=== PATIENT | male | born 1960 | race Caucasian/White ===

== ENCOUNTER 2023-09-05 07:25 | Inpatient (IN) | payer MEDICARE, SELFPAY ==
[2023-09-05] VITALS (42 sets, daily range): BP systolic 117–157; BP diastolic 71–93; PULSE 73–106; RESP 0–29; TEMP 36.2–36.7; O2SAT 91–97; BMI 25.7
--- NOTE | ~2023-09-05 | CT_ITS ---
CTA brain carotid Ordering provider: Ron Singh MD History: . left leg weakness . Comparison: None. Technique: CT angiogram head and neck was performed following timed intravenous injection of contrast . Thin slice axial images and reformatted coronal images were obtained. Three dimensional reformatted images of the brain were also obtained using a SEC Watch workstation. Radiation reduction technique ut ilized. DLP is 1702.81 mGy-cm. 100 mL Omnipaque 350 was given IV. FINDINGS: HEAD: --ANTERIOR AND MIDDLE CEREBRAL ARTERIES AND BRANCHES: Normal caliber and contour. --INTERNAL CAROTID ARTERIES: Mild atheromatous disease but no significant stenosis. No occlusion. --BASILAR ARTERY AND BRANCHES: Normal caliber and contour. No atheromatous disease. --POSTERIOR CEREBRAL ARTERIES: Normal caliber and contour --POSTERIOR COMMUNICATING ARTERIES: The right isn't demonstrated. The left is not visualized which is probably related to congenital absence or small size. --ANEURYSM: None visualized. --BRAIN: No acute intracranial process .--BONES AND SUPERFICIAL SOFT TISSUES: Normal.. --PARANASAL SINUSES AND MASTOIDS: Right maxillary sinus disease otherwise, Normal. NECK: --RIGHT CERVICAL CAROTID SYSTEM: Mild atheromatous disease of the carotid bulb and proximal internal carotid artery without significant stenosis. Percent stenosis per NASCET criteria is 30 %. No caroti d dissection. Otherwise, no significant atheromatous disease or stenosis of the cervical carotid syst em. --LEFT CERVICAL CAROTID SYSTEM: Mild atheromatous disease of the carotid bulb and proximal internal c arotid artery without significant stenosis. Percent stenosis per NASCET criteria is 30 %. No carotid dissection. Otherwise, no significant atheromatous disease or stenosis of the cervical carotid system. --VERTEBRAL ARTERIES: Normal caliber and contour. Narrowing of the intracranial left vertebral artery . Persistent is noted. --VISUALIZED AORTIC ARCH AND BRANCHING VESSELS: Mild atheromatous disease but no significant stenosis . --SOFT TISSUES: Normal. --CERVICAL SPINE: Age appropriate degenerative changes. IMPRESSION: 1. CTA head and neck. Percent stenosis per NASCET criteria is 30 % bilaterally. Reviewed, dictated and finalized at location A. IMPRESSION: 1. CTA head and neck. Percent stenosis per NASCET criteria is 30 % bilaterall y.
--- NOTE | ~2023-09-05 | CT_ITS ---
CT thoracic lumbar wo con Ordering provider: Ron Singh MD History: . back pain . Comparison: None. Technique: CT thoracic spine without contrast. Automated exposure control and iterative reconstructi on technique were employed. The dose-length product was 1007.03 mGy-cm. FINDINGS: VERTEBRAE: Compression fracture of T2 most likely acute slightly retropulsed fragment seen. Osteolyti c lesion is seen in the T4 on the left side osteolytic lesion is also seen in the right side of T10 O therwise, Normal height and alignment. No subluxation or other visible acute fracture in the thoracic and lumbar area. DISC SPACES: Well maintained. Disc bulge at the level of L4-L5 and L5-S1. PARASPINOUS SOFT TISSUES: Soft tissue density is seen to the left of T4. The abdominal aorta and the distal aorta measures 2.7 cm. Contrast is seen in the urinary bladder. IMPRESSION: Compression fracture of T2 with loss of volume of about 50%. Retropulsed fragment is seen. This is ma y be metastatic. Destructive lesion in the left side of T4 with soft tissue density seen to the left of this area most likely due to metastasis effusion. Further evaluation advised. Osteolytic lesion also seen in the right of T10. Mild disc bulges at the levels of L4-L5 and L5-S1. Reviewed, dictated and finalized at location A. IMPRESSION: Compression fracture of T2 with loss of volume of about 50%. Retropulsed fragme nt is seen. This is may be metastatic. Destructive lesion in the left side of T4 with soft tissue density seen to the left of this area most likely due to metastasis effusion. Further evaluation ad vised. Osteolytic lesion also seen in the right of T10. Mild disc bulges at the levels of L4-L5 and L5-S1.
--- NOTE | ~2023-09-05 | MR_ITS ---
MR brain/brain stem wo/w con Ordering provider: Ron Singh MD History: 63 years Male with . CVA . Comparison: CT head performed yesterday. Technique: MRI brain was performed with and without contrast. 17 mL of MultiHance was injected. FINDINGS: BONES: Normal. CRANIOCERVICAL JUNCTION: normal. PITUITARY: Normal. MAJOR INTRACRANIAL VESSELS: Normal flow void. OPTIC NERVES AND CRANIAL NERVES VII AND VIII COMPLEXES: Grossly normal. BRAIN PARENCHYMA AND CSF SPACES: Mild nonspecific T2 white matter hyperintensities are seen in a renan ateral periventricular and deep white matter distribution which are likely related to chronic ischemi c small vessel disease. The brainstem and cerebellum are normal. No acute or chronic intracranial hem orrhage. No extra axial fluid collections. Diffusion weighted and ADC mapping images reveal no recent ischemia. No midline shift or mass effect. No abnormal contrast enhancement. PARANASAL SINUSES: Right maxillary and bilateral ethmoid sinus. MASTOIDS: Normal SUPERFICIAL/SURROUNDING SOFT TISSUES: Normal. IMPRESSION: 1. No definite abnormality seen. 2. No abnormal enhancement. Reviewed, dictated and finalized at location A.
--- NOTE | ~2023-09-05 | MR_ITS ---
Procedure: MR thoracic spine wo/w Ordering provider: Ron Singh History: . back pain, left left weakness . Comparison: None. Technique: MRI thoracic spine with and without contrast. FINDINGS: SPINAL CORD: Cord contusion seen at the level of T2. Bright signal on T2-weighted images is seen in t he cord in the area of the disc T1-T2 which raises the possibility of cord transection. T1 weighted i mages bright signal is also seen in the area which may indicate a hematoma. Enhancement around the co rd is also noted which may indicate infiltrative process. No definite cord enhancement seen. VERTEBRAL BODIES: Compression fracture of T2 is noted with about 80% degree. T2 bright/T1 low signal is seen in T2, T4 and T10. Enhancement in multiple vertebrae is seen involving T2, T4 and T10. DISK SPACES: Normal. PARASPINOUS SOFT TISSUES: Prevertebral soft tissue swelling is seen at the level of inferior T1, T2 a nd superior T3. enhancement of the area is noted. Enhancing soft tissue swelling also seen around T4 and of minimal amount around T10 on the right side IMPRESSION: Compression fracture of T2 with loss of volume of about 80%. Abnormal signal with enhancement is seen in T2, T4 and T10. Cord contusion in the area is highly suggestive. Possibility of cord transection in the area just above T2 is not excluded. T1 bright signal is also seen in the area which may indica te a hematoma. Soft tissue swelling seen anterior to the area of T2 and also around T4 and T10. The findings are hig hly suggestive of metastatic disease with preservation of the disc spaces. Posttraumatic change or os teomyelitis cannot be excluded although less likely. Clinical correlation for trauma history is advised. Dr. Storm the hospitalist technology applications teacher was notified with the result of the patient at the time of dictatio n 2:45 PM on September 06, 2023 Reviewed, dictated and finalized at location A. IMPRESSION: Compression fracture of T2 with loss of volume of about 80%. Abnormal signal wi th enhancement is seen in T2, T4 and T10. Cord contusion in the area is highly suggestive. Possibility of cord transection in the area just above T2 is not ex cluded. T1 bright signal is also seen in the area which may indicate a hematoma . Soft tissue swelling seen anterior to the area of T2 and also around T4 and T10 . The findings are highly suggestive of metastatic disease with preservation of the disc spaces. Posttraumatic change or osteomyelitis cannot be excluded alth ough less likely. Clinical correlation for trauma history is advised. Dr. Storm the hospitalist technology applications teacher was notified with the result of the patient a t the time of dictation 2:45 PM on September 06, 2023
--- NOTE | ~2023-09-05 | CT_ITS ---
CT chest abdomen pelvis w con Ordering provider: Dotty Alston APRN History: 63 years Male with . concern for cancer with lytic lesions of spine . Comparison: None. Technique: CT chest with IV contrast. CT abdomen and pelvis CT abdomen and pelvis with IV and with or al contrast. The dose-length product was 610.87 mGy-cm. 100 mL Omnipaque 350 was given IV. FINDINGS: --VISUALIZED THORACIC INLET: Normal. --MEDIASTINUM: Aorta/coronary arteries: Mild atheromatous disease. Heart/other: The heart is not enlarged. Minimal pericardial effusion. Lymph nodes: Necrotic lymph nodes are seen in the right hilum which measures 3 x 2.8 cm. Right paratr acheal lymph nodes are also seen which measures 1.8 and 1.5 CM. necrotic subcarinal lymph nodes are a lso seen. Precarinal necrotic lymph node is seen measuring 2 cm x 2.7 cm. Other: Normal. --LUNGS: No pulmonary nodules or masses. No infiltrates or effusions. No pneumothorax. Dependent atel ectatic changes. --MUSCULOSKELETAL: Soft tissues: The superficial soft tissues are normal. Bones: Destructive lesion seen in the sternum Suggestive of metastatic lesion. Compression fracture o f T2 with retropulsed fragment. Metastatic lesions are also seen in T4 and T10. Please see MRI for mo re details. Age appropriate degenerative changes of the spine. . ABDOMEN/PELVIS: --MUSCULOSKELETAL: Bones: Age appropriate degenerative changes of the spine. No suspicious bony lytic or sclerotic lesio ns. Superficial soft tissues: Small left fat-containing inguinal hernia. The superficial soft tissues are normal. --UPPER ABDOMINAL ORGANS: Liver: Multiple hypodense lesions are seen in the liver which may be cysts or metastatic lesions. Gallbladder: Normal. Spleen: Normal. Stomach/duodenum: Normal. Pancreas: Normal. Adrenals: Left adrenal metastatic lesions seen measuring 1.8 x 1.1 cm. Kidneys: Possible stone in the right kidney upper pole. --PELVIC ORGANS: The bladder is normal. No bladder stones. Prostatic enlargement. --BOWEL AND MESENTERY: Colon: No evidence of diverticulitis sigmoid colon. Fecal material seen in the colon which may indica te patient. Normal appendix. Small Bowel: Normal. No obstruction. Peritoneum/mesentery: No free air or free fluid. No mesenteric lymphadenopathy. --RETROPERITONEUM: Mild atheromatous disease of the abdominal aorta. No retroperitoneal lymphadenop athy. IMPRESSION: CHEST: 1. Minimal pericardial effusion. 2. Right hilar and mediastinal lymphadenopathy. 3. Osteolytic lesions in the sternum and multiple vertebrae. Suggestive of metastases. ABDOMEN/PELVIS: 1. Multiple hypodense lesions in the liver which may be metastatic lesions. 2. Highly suggestive metastatic lesion in the left adrenal gland. Reviewed, dictated and finalized at location A. IMPRESSION: CHEST: 1. Minimal pericardial effusion. 2. Right hilar and mediastinal lymphadenopathy. 3. Osteolytic lesions in the sternum and multiple vertebrae. Suggestive of met astases. ABDOMEN/PELVIS: 1. Multiple hypodense lesions in the liver which may be metastatic lesions. 2. Highly suggestive metastatic lesion in the left adrenal gland.
--- NOTE | ~2023-09-05 | MR_ITS ---
MR cervical spine wo/w con Ordering provider: Ron Singh History: . neck pain . Comparison: None. Technique: MRI cervical spine with and without contrast enhancement. 17 mL MultiHance was injected IV . FINDINGS: CERVICAL SPINAL CORD/CRANIAL CERVICAL JUNCTION: Normal in signal and caliber. No abnormal enhancement . Cord caliber decrease at the level of T2 vertebra is noted with enhancing soft tissue seen anterior a nd bilateral to the cord more on the right side with anterior indentation of the cord. CERVICAL VERTEBRAL BODIES: Compression fracture of T2 vertebra with enhancement and T2 bright signal is noted. Enhancement in the posterior elements also seen at the same level. Enhancement is seen in T 4 vertebra with low signal on T1-weighted images and bright signal on T2-weighted images. Normal height and alignment of the cervical spine. Normal marrow signal of the cervical spine. No abn ormal marrow enhancement. Severe compression fracture of T2 vertebra with DISK SPACES: Well maintained. C2-C3: No stenosis. C3-C4: Mild spinal canal stenosis secondary to broad based disc bulge. Narrowing of the left interve rtebral foramen C4-C5: Moderate spinal canal stenosis secondary to broad based disc bulge. Slight narrowing of the b oth intervertebral foramen. C5-C6: Mild spinal canal stenosis secondary to broad based disc bulge. narrowing of the foramina. Po ssible root compression C6-C7: No stenosis. Mild diffuse disc bulge with no definite narrowing of the foramina. C7-T1: No stenosis. VISUALIZED PARASPINOUS SOFT TISSUES: Enhancing soft tissue swelling is seen anterior to T2 vertebra a nd also posterior. IMPRESSION: 1. Severe compression of T2 vertebral body with bright signal on T2-weighted images and dark signal on T1-weighted images with enhancement in the postcontrast images. 2. Enhancing Soft tissue swelling seen anterior and posterior to this vertebra with narrowing of the caliber of the spinal cord. 3. Enhancement also seen in T4 vertebra which raises the possibility of metastatic disease. Clinical correlation and further evaluation advised. 4. The bright signal seen in the thoracic MRI study in the cord is not seen in this study which may be artifactual.. 5. Multilevel spinal canal stenosis with variable degrees of intervertebral foraminal narrowing. Reviewed, dictated and finalized at location A. IMPRESSION: 1. Severe compression of T2 vertebral body with bright signal on T2-weighted i mages and dark signal on T1-weighted images with enhancement in the postcontras t images. 2. Enhancing Soft tissue swelling seen anterior and posterior to this vertebra with narrowing of the caliber of the spinal cord. 3. Enhancement also seen in T4 vertebra which raises the possibility of metast atic disease. Clinical correlation and further evaluation advised. 4. The bright signal seen in the thoracic MRI study in the cord is not seen in this study which may be artifactual.. 5. Multilevel spinal canal stenosis with variable degrees of intervertebral fo raminal narrowing.
--- NOTE | ~2023-09-05 | XR_ITS ---
EXAMINATION: XR chest 2V 09/05/2023 08:18 INDICATION: Weakness PROCEDURE: 2 view chest COMPARISON: 01/13/2013 FINDINGS: The lungs are clear. The cardiomediastinal silhouette is within normal limits. There are no pleural effusions. There is no pneumothorax suspected. IMPRESSION: 1: NO ACUTE CARDIOPULMONARY DISEASE. Reviewed, dictated and finalized at location B.
--- NOTE | ~2023-09-05 | MR_ITS ---
Procedure: MR lumbar spine wo/w con Ordering provider: Ron Singh History:63 years Male with . leg weakness . Comparison: None. Technique: MRI lumbar spine with and without contrast. FINDINGS: CONUS MEDULLARIS: Normal in position and appearance with no abnormal enhancement. The conus ends at t he level of L1-L2. LUMBAR VERTEBRAL BODIES: Normal height and alignment. no compression fracture. Normal marrow signal. No abnormal marrow enhancement. DISK SPACES: Normal. T12-L1: No stenosis. L1-L2: No stenosis. L2-L3: No stenosis. L3-L4: No stenosis. L4-L5: No stenosis. Very mild disc bulge. No definite root compression. L5-S1: No stenosis. PARASPINOUS SOFT TISSUES: Normal. No abnormal paraspinous enhancement. IMPRESSION: 1. No definite significant abnormality seen. 2. No abnormal enhancement. Reviewed, dictated and finalized at location A.
--- NOTE | 2023-09-05 07:33 | ECG_ITS ---
Test Date: 2023-09-05 07:45:16 Measurements Intervals [place] Rate: 76 P: 62 ND: 172 QRS: 88 QRSD: 124 T: 98 QT: 363 QTc: 410 Interpretive Statements SINUS RHYTHM INTRAVENTRICULAR CONDUCTION DELAY MINIMAL Q WAVES- INFERIOR LEADS NONSPECIFIC T-WAVE ABNORMALITY- LAT/HIGH LAT LEADS BORDERLINE ECG No previous ECG available for comparison Electronically Signed On 09-05-2023 07:49:35 CDT by Musa Barboza D.O.
[2023-09-05 07:46] LABS: Basophils Percent Auto 0.2 % (0.2-1.2); Eosinophils Percent Auto 0.1 % (0-4.4); Hematocrit 38.6 % (42.0-52.0); Hemoglobin 12.8 g/dL (14.0-18.0); Immature Granulocyte Absolute 0.02 K/mm3 (0.00-0.031); Immature Granulocyte Percent A 0.2 % (0-0.5); Lymphocytes Absolute Auto 1.07 K/mm3 (0.9-3.2); Lymphocytes Percent Auto 12.1 % (18.3-44.2); Mean Corpuscular HGB Conc 33.2 g/dl (32-36); Mean Corpuscular Hemoglobin 30.8 pg (26-34); Mean Corpuscular Volume 92.8 fl (80-100); Mean Platelet Volume 9.3 fl (7.4-10.4); Monocytes Percent Auto 11.8 % (2.6-8.5); Neutrophils Absolute Auto 6.7 K/mm3 (1.3-6.7); Neutrophils Percent Auto 75.6 % (45.5-73.1); Platelet Count Result 292 k/mm3 (150-375); Red Blood Count 4.16 M/mm3 (4.6-6.20); Red Cell Distribution Width 12.8 % (11.5-14.5); White Blood Count 8.8 K/mm3 (4.5-10.0)
[2023-09-05 07:49] LABS: Glucose Point of Care 118 mg/dl (65-105)
[2023-09-05 07:56] LABS: Alanine Aminotransferase 27 U/L (6-50); Albumin Level 4.2 g/dL (3.5-5.1); Alkaline Phosphatase 97 U/L (38-126); Anion Gap 6 mmol/L (4-12); Aspartate Amino Transferase 27 U/L (17-59); Bilirubin,Total 0.3 mg/dL (0.2-1.3); Blood Urea Nitrogen 11 mg/dL (9-20); Calcium 9.2 mg/dL (8.4-10.2); Carbon Dioxide 32 mmol/L (22-30); Chloride 96 mmol/L (98-107); Estimated CRCL calculation 114 ml/min; Estimated Glomerular Filt Rate > 60; Glucose 104 mg/dL (65-110); Potassium 4.4 mmol/L (3.4-5.0); Sodium 134 mmol/L (137-145)
[2023-09-05 08:17] LABS: Creatine Kinase 77 U/L (55-170)
[2023-09-05 08:24] LABS: Troponin I 0.019 ng/mL (0.000-0.034)
--- NOTE | 2023-09-05 08:24 | ED.GENADULT ---
HPI - General Adult General Chief complaint: Weakness Stated complaint: weakness Time Seen by Provider: 09/05/23 07:46 History of Present Illness HPI narrative: 63-year-old male presents to the emergency department for evaluation for increased generalized chronic pain. Patient states he has been taking excessive doses of ibuprofen for proximal last week. Patient states instead taking 800 mg he was taking 8 x 200 mg pills 3 to 4 times a day. Patient reports over the last 2 days he has had increased back pain. Patient states that he has had increased leg weakness over the last 2 days. Patient denies any new falls or injuries. Patient also reports some weakness of the left arm. Related Data Home Medications Medication Instructions Recorded Confirmed No Home Medications 09/05/23 09/05/23 Allergies Allergy/AdvReac Type Severity Reaction Status Date / Time No Known Allergies Allergy Verified 09/05/23 08:31 Review of Systems Review of Systems: All systems reviewed & are unremarkable except as noted in HPI and below PMFSH Past Medical History Medical History Bipolar 1 disorder HTN (hypertension) Pre-diabetes Schizoaffective disorder Social History Social History (Updated 09/05/23 @ 13:56 by Dotty Alston APRN) Social History: Patient lives with his girlfriend who has dementia. He will not tell me her name, it doesn't matter . He is disabled but previously worked different jobs in construction, [employer], etc. He does not have any children. He nominates his mother, Priscila Hernnadez of [place] to make decisions for him. He says he hasn't had a drink in 3 weeks, he currently smokes weed, and tobacco. Smoking packs per day: 1 Smoking cigarettes per day: 20.0 Years smoked: 45 Smoking pack-years: 45.00 Smoking status: Current every day smoker Tobacco type: cigarettes Second hand tobacco smoke exposure: Yes Alcohol intake: former Drinks per week: 14 Alcohol use details: says he quit three weeks ago Substance use: current Substance use type: marijuana Last use: 09/02/23 Do You Feel Safe in your Home?: Yes Lack of Transportation: YES Lack of Food: Sometimes True Current Housing: I Have Housing Concerned About Future Housing: YES Difficulty Paying Gas/Electric Bills: No Difficulty Paying for Meds: No Currently Unemployed: No Education: High School Diploma/GED Difficulty w/ Childcare or Family Care: No Living arrangements: with family Occupation/Education: unemployed Additional occupation/education comments: disabled Spiritual care concerns: No Exam Narrative: APPEARANCE: Well appearing, no pain, no distress, well-nourished. HEAD: normocephalic, atraumatic. EYES: PERRLA/EOMI, conjunctivae clear. NOSE: Normal no drainage EARS:TMS clear with good light reflex. THROAT: Pharynx clear, no exudate. NECK: Supple. No adenopathy, no masses. RESPIRATORY: Airway patent, respirations nonlabored. Clear to auscultation bilaterally, no rales, rhonchi, wheezing. CARDIOVASCULAR: Regular rate and rhythm without murmurs rubs or gallops. ABDOMINAL: Soft, nontender, nondistended, normal bowel sounds MUSCULOSKELETAL: Bilateral lower extremity weakness worse on left than right. No upper extremity weakness NEURO: Alert. Cranial nerves II through XII intact. Good gait. Good coordination SKIN: Warm, dry. Normal Color Course Course Emergency Course: Patient was admitted for further workup for spinal etiology or intracranial etiology for the patient's weakness Vital Signs Vital signs: Vital Signs Temperature 97.8 F 09/05/23 07:29 Pulse Rate 95 09/05/23 07:29 Respiratory Rate 16 09/05/23 07:29 Blood Pressure 129/71 09/05/23 07:29 Pulse Oximetry 92 09/05/23 07:29 Oxygen Delivery Room Air 09/05/23 07:29 Temperature 97.1 F L 09/05/23 17:35 Pulse Rate 100 09/05/23 17:35 Respiratory Rate 16
[2023-09-05] MEDS: HYDROcodone/acetaminophen (*CRX) 5-325 MG TABLET 1 TAB PO ×2 (08:31→18:54)
[2023-09-05] MEDS: Please add drug allergy info to patient profile. 1 EACH XX (08:31)
[2023-09-05 08:44] LABS: Influenza A QL RT-PCR Negative (Negative); Influenza B QL RT-PCR Negative (Negative); RSV RNA, RT-PCR Negative (Negative); SARS-CoV-2 RNA PCR Negative (Negative)
[2023-09-05 09:17] LABS: Appearance Urine Clear (Clear); Bilirubin Urine Negative (Negative); Blood Urine Negative (Negative); Color Urine Yellow (Yellow); Glucose Urine UA Negative (Negative); Ketones Urine Negative (Negative); Leukocyte Esterase Ur Negative LEU/UL (Negative); Nitrate Urine Negative (Negative); Protein Urine Negative (Negative); Specific Grav Ur 1.013 (1.001-1.035)
[2023-09-05 09:19] LABS: Add Urine Microscopic? NO
[2023-09-05 09:53] LABS: Creatine Kinase 76 U/L (55-170)
[2023-09-05 10:40] LABS: Prothrombin Time 13.3 Seconds (11.1-14.7)
[2023-09-05 10:41] LABS: Partial Thromboplastin Time 29.5 Seconds (22.3-36.8)
--- NOTE | 2023-09-05 13:01 | PM.IMHP ---
H&P: HPI History of Present Illness Date/Time: 09/05/23 13:01 Chief Complaint: back pain, inability to walk Narrative: This is a 63 year old gentleman with a past medical history significant for bipolar schizoaffective disorder, HTN, and pre-diabetes per his report. The patient provides the following history but it is limited due to aggravation surrounding his back pain. He says that approximately 3 weeks ago he had acute onset of back pain to his mid-thoracic spine with no aggravating insult. He says he carries heavy groceries up the stairs but otherwise no other lifting. He was seen at [facility] ED where they did nothing . He has been managing with this pain by taking high doses of ibuprofen. Approximately two days ago his left leg started causing him pain and locked up making it difficult for him to walk. He was hoping stretching a rest would help but it has not improved and therefore he contacted EMS for hospital evaluation. He is unable to describe the pain other that saying it feels like someone shoved a hot poker through his back. When I ask further questions regarding radiation of pain he stops me yelling it's just my back lady . He is reporting numbness to his left leg and chronic numbness and tingling to his feet. He also says his elbows are numb. He denies headache, dizziness, chest pain, shortness of breath, cough, congestion, fever, chills, abdominal pain, nausea, vomiting, diarrhea or constipation. He says he is voiding without difficulty and denies saddle anesthesia. The only thing that has provided some relief was a pain pill he received early this morning and sometimes stretching helps. In the ED labs were significant for WBC 8.8, Hgb 12.8, Hct 38.6, Na 134, K 4.4, Cl 96, CO2 32, Cr 0.40, and glucose 118. Urinalysis was negative and viral upper respiratory panel negative. CTA head and neck without significant stenosis. CT of thoracic and lumbar spine shows a compression fracture of T2 with loss of volume of 50%, retropulsed fragment seen which is concerning for malignancy; destructive lesion in the left side of T4 with soft tissue density concerning for metastasis effusion, osteolytic lesion also seen in right of T10, and mild disc bulges at level of L4-L5, and L5-S1. He is being admitted for further MRI imaging, pain control, and therapy consult. Review of Systems Review of Systems: ROS unobtainable: Yes unobtainable due to medical condition PMFSH Past Medical History Medical History Bipolar 1 disorder HTN (hypertension) Pre-diabetes Schizoaffective disorder Social History Social History (Updated 09/05/23 @ 13:56 by Dotty Alston APRN) Social History: Patient lives with his girlfriend who has dementia. He will not tell me her name, it doesn't matter . 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 He does not have any children. He nominates his mother, Priscila Hernandez of [place] to make decisions for him. He says he hasn't had a drink in 3 weeks, he currently smokes weed, and tobacco. Smoking status: Current every day smoker Tobacco type: cigarettes Alcohol intake: former Alcohol use details: says he quit three weeks ago Substance use: current Substance use type: marijuana Do You Feel Safe in your Home?: Yes Lack of Transportation: No Lack of Food: Never True Current Housing: I Have Housing Living arrangements: with family Occupation/Education: unemployed Additional occupation/education comments: disabled Meds Home Medications and Allergies Allergies Allergy/AdvReac Type Severity Reaction Status Date / Time No Known Allergies Allergy Verified 09/05/23 08:31 Vital Signs Vital Signs - 24 hr 09/05/23 07:29 09/05/23 07:47 09/05/23 07:49 Temperature 97.8 F Pulse Rate 95 84 87 Respiratory Rate 16 20 19 Blood Pressure 129/71 Pulse Oximetry 92 91 Oxygen Delivery
[2023-09-05] MEDS: ACETAMINOPHEN 325 MG TABLET 650 MG PO ×2 (13:33→21:39)
[2023-09-05] MEDS: dexAMETHasone SOD PHOS INJ 4 MG/ML VIAL IV PUSH ×2 (13:33→18:32)
[2023-09-05] MEDS: CYCLOBENZAPRINE HCL 10 MG TABLET PO ×2 (13:33→21:38)
[2023-09-05 14:09] LABS: CRP 4.9 mg/dL (<1.0)
[2023-09-05 14:11] LABS: Hemoglobin A1C 6.3 % (<5.7); Phosphorus 3.9 mg/dL (2.5-4.5)
--- NOTE | 2023-09-05 15:36 | ADMGEN ---
This patient, Joshua Hernandez, was admitted to Medical Room 250-01. Patient/family oriented to hospital policies and general routines including ID bracelet, bed and alarms, visiting hours, pain management, procedures, bathroom and other care routines, personal items, smoking policy, room service/diet, and visiting hours. Information on how to activate the Rapid Response Team has been discussed. Patient/Family are encouraged to report perceived risks to care and to ask questions if they do not understand what they are told or what they should do.
[2023-09-05 17:36] LABS: Glucose Point of Care 244 mg/dl (65-105)
[2023-09-05] MEDS: INSULIN ASPART (*BKC) 100 UNITS/ML SUB-Q (18:00)
[2023-09-05 18:10] LABS: Amphetamine Screen Urine Negative (Negative); Barbiturate Screen Urine Negative (Negative); Benzodiazepines Screen Urine Negative (Negative); Cannabinoid Screen Urine Negative (Negative); Cocaine Screen Urine Negative (Negative); Methadone Screen Urine Negative (Negative); Opiate Screen Urine Positive (Negative); Phencyclidine Screen Urine Negative (Negative)
[2023-09-05] MEDS: ENOXAPARIN 40 MG/0.4 ML SYRINGE SUB-Q (18:32)
[2023-09-05] MEDS: DOCUSATE SODIUM 100 MG CAPSULE PO (18:32)
[2023-09-05 21:43] LABS: Glucose Point of Care 176 mg/dl (65-105)
[2023-09-06] VITALS (7 sets, daily range): BP systolic 118–143; BP diastolic 75–83; PULSE 81–99; RESP 18; TEMP 36.4–36.7; O2SAT 92–94
[2023-09-06] MEDS: dexAMETHasone SOD PHOS INJ 4 MG/ML VIAL IV PUSH ×4 (00:27→18:45)
[2023-09-06 05:27] LABS: Basophils Percent Auto 0.1 % (0.2-1.2); Hematocrit 38.4 % (42.0-52.0); Hemoglobin 12.9 g/dL (14.0-18.0); Immature Granulocyte Absolute 0.03 K/mm3 (0.00-0.031); Immature Granulocyte Percent A 0.3 % (0-0.5); Lymphocytes Absolute Auto 0.75 K/mm3 (0.9-3.2); Mean Corpuscular HGB Conc 33.6 g/dl (32-36); Mean Corpuscular Volume 92.3 fl (80-100); Mean Platelet Volume 9.4 fl (7.4-10.4); Monocytes Absolute Auto 0.3 K/mm3 (0.1-0.6); Monocytes Percent Auto 3.5 % (2.6-8.5); Neutrophils Absolute Auto 8.2 K/mm3 (1.3-6.7); Neutrophils Percent Auto 88.1 % (45.5-73.1); Platelet Count Result 314 k/mm3 (150-375); Red Blood Count 4.16 M/mm3 (4.6-6.20); Red Cell Distribution Width 12.8 % (11.5-14.5); White Blood Count 9.4 K/mm3 (4.5-10.0)
[2023-09-06] MEDS: ACETAMINOPHEN 325 MG TABLET 650 MG PO ×2 (05:36→14:05)
[2023-09-06 05:39] LABS: Iron 67 ug/dL (49-181)
[2023-09-06 05:41] LABS: Alanine Aminotransferase 29 U/L (6-50); Albumin Level 4.1 g/dL (3.5-5.1); Alkaline Phosphatase 97 U/L (38-126); Anion Gap 7 mmol/L (4-12); Aspartate Amino Transferase 27 U/L (17-59); Bilirubin,Total 0.5 mg/dL (0.2-1.3); Blood Urea Nitrogen 16 mg/dL (9-20); Calcium 9.4 mg/dL (8.4-10.2); Carbon Dioxide 29 mmol/L (22-30); Chloride 96 mmol/L (98-107); Estimated CRCL calculation 114 ml/min; Estimated Glomerular Filt Rate > 60; Glucose 139 mg/dL (65-110); Potassium 4.4 mmol/L (3.4-5.0); Sodium 132 mmol/L (137-145)
[2023-09-06] MEDS: HYDROcodone/acetaminophen (*CRX) 10-325 MG TABLET 1 TAB PO (05:42)
[2023-09-06 05:50] LABS: Percent Iron Saturation 22 % (20-50)
[2023-09-06 06:45] LABS: Folic Acid 9.1 ng/mL (2.76->20)
--- NOTE | 2023-09-06 07:23 | PM.IMPN ---
Progress Note: A&P Assessment and Plan (1) Back pain: Code(s): M54.9 - Dorsalgia, unspecified Status: Acute Assessment and Plan: Patient reports with a 3-4 week complaint of mid-thoracic back pain which acutely became worse in the last 2 days causing him to have impaired mobility and limited function to his left leg. CT imaging of his back is concerning for compression fracture of T2 with retropulsed fragment possibly metastatic, destructive lesion the left side of T4 with soft tissue density likely metastatic effusion, osteolytic lesion the right of T10, and mild disc bulges at the levels of L4-L5 and L5-S1. Admit to medicine floor CRP 4.9 mg/dL Proceed with MRI of the spine with, without contrast. Studies completed today, awaiting final reads. Urinary retention. Unclear if it is sole from being unable to empty his bladder while laying down or if there is a loss of function component. Await MRI I discussed the case with Dr. Victor, neurosurgery who will reach out to the brace team at [facility] who will supply the patient with a TLSO brace. No other acute neurosurgery needs at this time. Patient may require surgery in the future. Hematology-Oncology was consulted for concerns of possible malignancy and appreciate assistance with further work up CTA chest abdomen and pelvis ordered to identify other lesions Pain control with scheduled Tylenol, PRN Hamilton 5-10 mg as needed for pain, Morphine IVP for breakthrough pain. Added Decadron 4 mg IVP every 6 hours. PRN Flexeril 10 mg BID. Bed rest until TLSO brace available PT/OT will be consulted once TLSO brace is here and patient's pain is under better control (2) Left leg weakness: Code(s): R29.898 - Other symptoms and signs involving the musculoskeletal system Status: Acute Assessment and Plan: Left leg weakness and pain CT lumbar spine shows mild disc bulges at the levels of L4-L5, L5-S1 Pain regimen as above PT/OT consult when appropriate (3) Anemia: Code(s): D64.9 - Anemia, unspecified Status: Acute Assessment and Plan: Hemoglobin 12.8 g/dl with no overt bleeding. Normal indices. Anemia panel ordered--iron, vit b12, folate all normal occult blood ordered CBC daily (4) Diabetes: Code(s): E11.9 - Type 2 diabetes mellitus without complications Status: Acute Assessment and Plan: Patient reports previously being a diabetic but then lost a lot of weight. Hemoglobin A1C is 6.3% Given the patient is on steroids will monitor with AC/HS accu checks Low dose SSI ordered, hypoglycemia protocol (5) HTN (hypertension): Code(s): I10 - Essential (primary) hypertension Status: Acute Assessment and Plan: Blood pressures ranging 130-160/80's not on antihypertensives expect some elevation 2/2 pain continue to monitor and if consistently elevated can consider adding PO anti-hypertensive Plan Feeding: Regular diet Analgesia: Scheduled Tylenol, PRN Hamilton, PRN morphine for breakthrough, Flexeril PRN, and IVP steroid Thromboembolic prophylaxis: Lovenox Ulcer prophylaxis: Glycemic control: SSI low dose, ac/hs Accu checks Bowel regimen: Colace and senna Lines: PIV Disposition: Patient lives at home alone with his girlfriend who has dementia. He is here for back pain, left leg pain, and immobility due to severity of the pain. Imaging is concerning for lytic bone lesions in his thoracic spine. MRI is pending. He is being admitted for further work up of malignancy, pain control, and PT/OT. Advance Care Plan I have confirmed that the patient's Advanced Care Plan is present, code status is documented, or surrogate decision maker is listed in patient medical record.: Yes Medication Reconciliation I have utilized all available resources to obtain, update and review the patients current medications (includes all prescriptions, OTC, herbals, cannabis, and nutritional supplements
[2023-09-06 07:57] LABS: Glucose Point of Care 145 mg/dl (65-105)
[2023-09-06] MEDS: BISACODYL 5 MG TABLET EC PO (08:26)
[2023-09-06] MEDS: CYCLOBENZAPRINE HCL 10 MG TABLET PO (08:26)
[2023-09-06] MEDS: ENOXAPARIN 40 MG/0.4 ML SYRINGE SUB-Q (08:26)
[2023-09-06] MEDS: DOCUSATE SODIUM 100 MG CAPSULE PO ×2 (08:26→18:45)
[2023-09-06] MEDS: MORPHINE SULFATE (*CRX) 4 MG/ML INJ IV PUSH (10:17)
--- NOTE | 2023-09-06 10:25 | PC.NURSE ---
pt taken down to MRI/CT
--- NOTE | 2023-09-06 12:25 | PC.NURSE ---
pt returned from MRI/CT to room
[2023-09-06 12:35] LABS: Glucose Point of Care 137 mg/dl (65-105)
--- NOTE | 2023-09-06 15:56 | ECG_ITS ---
Test Date: 2023-09-06 16:07:41 Measurements Intervals [place] Rate: 79 P: 76 CO: 168 QRS: 90 QRSD: 128 T: 91 QT: 358 QTc: 412 Interpretive Statements SINUS RHYTHM INTRAVENTRICULAR CONDUCTION DELAY DELAYED PRECORDIAL R/S TRANSITION ST ELEVATION IN ANTEROLATERAL LEADS, PROBABLY EARLY REPOLARIZATION MINIMAL Q WAVES- INFERIOR LEADS BORDERLINE ECG Compared to ECG 09/05/2023 07:45:16 NO SIGNIFICANT CHANGE Electronically Signed On 09-06-2023 19:39:27 CDT by Musa Barboza D.O.
[2023-09-06 16:49] LABS: Glucose Point of Care 128 mg/dl (65-105)
--- NOTE | 2023-09-06 18:25 | PC.NURSE ---
attempts to call report to [facility]. first attempt no answer, 2nd attempt nurse unavailable. left name and call back number
--- NOTE | 2023-09-06 18:46 | P.TS_ITS ---
Transfer Discharge Sum: Prov Provider Date of admission: 09/06/23 16:16 Primary care physician: UNKNOWN,DOCTOR Admitting clinician: Jailene Marmolejo MD Consults: 09/05/23 15:10 Consult to Physician Routine Comment: spoke with Dixie at the exchange @1700 WS RN Consulting Provider: Victoriano Briones mail caller/MD group to consult: oncology Reason for consultation: concern for maligancy with lytic bone lesions of spine Has provider been notified: Yes DS: Admitting Diagnosis Discharge Date 09/05 Admitting Diagnosis chest pain DS: Discharge Diagnosis Discharge Diagnosis (1) Back pain: Code(s): M54.9 - Dorsalgia, unspecified Status: Acute Assessment and Plan: Patient reports with a 3-4 week complaint of mid-thoracic back pain which acutely became worse in the last 2 days causing him to have impaired mobility and limited function to his left leg. CT imaging of his back is concerning for compression fracture of T2 with retropulsed fragment possibly metastatic, destructive lesion the left side of T4 with soft tissue density likely metastatic effusion, osteolytic lesion the right of T10, and mild disc bulges at the levels of L4-L5 and L5-S1. * Admit to medicine floor * CRP 4.9 mg/dL * Proceed with MRI of the spine with, without contrast. Studies completed today, awaiting final reads. * Urinary retention. Unclear if it is sole from being unable to empty his bladder while laying down or if there is a loss of function component. Await MRI * I discussed the case with Dr. Victor, neurosurgery who will reach out to the brace team at [facility] who will supply the patient with a TLSO brace. No other acute neurosurgery needs at this time. Patient may require surgery in the future. * Hematology-Oncology was consulted for concerns of possible malignancy and appreciate assistance with further work up * CTA chest abdomen and pelvis ordered to identify other lesions * Pain control with scheduled Tylenol, PRN [place] 5-10 mg as needed for pain, Morphine IVP for breakthrough pain. Added Decadron 4 mg IVP every 6 hours. PRN Flexeril 10 mg BID. * Bed rest until TLSO brace available * PT/OT will be consulted once TLSO brace is here and patient's pain is under better control (2) Left leg weakness: Code(s): R29.898 - Other symptoms and signs involving the musculoskeletal system Status: Acute Assessment and Plan: Left leg weakness and pain * CT lumbar spine shows mild disc bulges at the levels of L4-L5, L5-S1 * Pain regimen as above * PT/OT consult when appropriate (3) Anemia: Code(s): D64.9 - Anemia, unspecified Status: Acute Assessment and Plan: Hemoglobin 12.8 g/dl with no overt bleeding. Normal indices. * Anemia panel ordered--iron, vit b12, folate all normal * occult blood ordered * CBC daily (4) Diabetes: Code(s): E11.9 - Type 2 diabetes mellitus without complications Status: Acute Assessment and Plan: Patient reports previously being a diabetic but then lost a lot of weight. Hemoglobin A1C is 6.3% * Given the patient is on steroids will monitor with AC/HS accu checks * Low dose SSI ordered, hypoglycemia protocol (5) HTN (hypertension): Code(s): I10 - Essential (primary) hypertension Status: Acute Assessment and Plan: Blood pressures ranging 130-160/80's * not on antihypertensives * expect some elevation 2/2 pain * continue to monitor and if consistently elevated
--- NOTE | 2023-09-06 18:46 | PM.TDS ---
Transfer Discharge Sum: Prov Provider Date of admission: 09/06/23 16:16 Primary care physician: UNKNOWN,DOCTOR Admitting clinician: Jailene Marmolejo MD Consults: 09/05/23 15:10 Consult to Physician Routine Comment: spoke with Dixie at the exchange @1700 WS RN Consulting Provider: Victoriano Briones call or contact centre operator/MD group to consult: oncology Reason for consultation: concern for maligancy with lytic bone lesions of spine Has provider been notified: Yes DS: Admitting Diagnosis Discharge Date 09/05 Admitting Diagnosis chest pain DS: Discharge Diagnosis Discharge Diagnosis (1) Back pain: Code(s): M54.9 - Dorsalgia, unspecified Status: Acute Assessment and Plan: Patient reports with a 3-4 week complaint of mid-thoracic back pain which acutely became worse in the last 2 days causing him to have impaired mobility and limited function to his left leg. CT imaging of his back is concerning for compression fracture of T2 with retropulsed fragment possibly metastatic, destructive lesion the left side of T4 with soft tissue density likely metastatic effusion, osteolytic lesion the right of T10, and mild disc bulges at the levels of L4-L5 and L5-S1. Admit to medicine floor CRP 4.9 mg/dL Proceed with MRI of the spine with, without contrast. Studies completed today, awaiting final reads. Urinary retention. Unclear if it is sole from being unable to empty his bladder while laying down or if there is a loss of function component. Await MRI I discussed the case with Dr. Victor, neurosurgery who will reach out to the brace team at [facility] who will supply the patient with a TLSO brace. No other acute neurosurgery needs at this time. Patient may require surgery in the future. Hematology-Oncology was consulted for concerns of possible malignancy and appreciate assistance with further work up CTA chest abdomen and pelvis ordered to identify other lesions Pain control with scheduled Tylenol, PRN [place] 5-10 mg as needed for pain, Morphine IVP for breakthrough pain. Added Decadron 4 mg IVP every 6 hours. PRN Flexeril 10 mg BID. Bed rest until TLSO brace available PT/OT will be consulted once TLSO brace is here and patient's pain is under better control (2) Left leg weakness: Code(s): R29.898 - Other symptoms and signs involving the musculoskeletal system Status: Acute Assessment and Plan: Left leg weakness and pain CT lumbar spine shows mild disc bulges at the levels of L4-L5, L5-S1 Pain regimen as above PT/OT consult when appropriate (3) Anemia: Code(s): D64.9 - Anemia, unspecified Status: Acute Assessment and Plan: Hemoglobin 12.8 g/dl with no overt bleeding. Normal indices. Anemia panel ordered--iron, vit b12, folate all normal occult blood ordered CBC daily (4) Diabetes: Code(s): E11.9 - Type 2 diabetes mellitus without complications Status: Acute Assessment and Plan: Patient reports previously being a diabetic but then lost a lot of weight. Hemoglobin A1C is 6.3% Given the patient is on steroids will monitor with AC/HS accu checks Low dose SSI ordered, hypoglycemia protocol (5) HTN (hypertension): Code(s): I10 - Essential (primary) hypertension Status: Acute Assessment and Plan: Blood pressures ranging 130-160/80's not on antihypertensives expect some elevation 2/2 pain continue to monitor and if consistently elevated can consider adding PO anti-hypertensive Plan Feeding: Regular diet Analgesia: Scheduled Tylenol, PRN Hercules, PRN morphine for breakthrough, Flexeril PRN, and IVP steroid Thromboembolic prophylaxis: Lovenox Ulcer prophylaxis: Glycemic control: SSI low dose, ac/hs Accu checks Bowel regimen: Colace and senna Lines: PIV Disposition: Patient lives at home alone with his girlfriend who has dementia. He is here for back pain, left leg pain, and immobility due to severity of the pa
== END 2023-09-06 20:10 | disposition short-term general hospital (02) | DRG 552 ==
LOC: ANHED 13:06 → ANH2MED 13:54
PROVIDERS: Admitting Provider General Practice; Emergency Provider Emergency Medicine; Visit Provider Nurse Practitioner Acute Care
DX: M54.9 Dorsalgia, unspecified (principal); M89.58 Osteolysis, other site; M89.9 Disorder of bone, unspecified; F12.90 Cannabis use, unspecified, uncomplicated; D64.9 Anemia, unspecified; E11.9 Type 2 diabetes mellitus without complications; F17.210 Nicotine dependence, cigarettes, uncomplicated; I10 Essential (primary) hypertension; R29.898 Other symptoms and signs involving the musculoskeletal system; Z20.822 Contact with and (suspected) exposure to COVID-19
CPT/HCPCS: 36415; 70496; 70498; 70553; 71046; 71260; 72125; 72128; 72131; 72156; 72157; 72158; 74177; 80053; 80307; 81003; 82550; 82607; 82746; 82948; 83036; 83540; 83550; 83735; 84100; 84484; 85025; 85610; 85730; 86140; 87637; 93005; 96372; 96374; 96375; 96376; 99285; A9270; A9577; G0378; J1100; J1650; J1815; J2270; Q9967